=== PATIENT | female | born 1985 | race American Indian/Alaskan Native ===

== ENCOUNTER 2018-10-22 09:55 | Outpatient (CLI) | payer OTHER ==
[2018-10-22 10:20] VITALS: BP 113/63
--- NOTE | 2018-10-22 13:25 | Ultrasound Report ---
ULTRASOUND BIOPHYSICAL PROFILE: History: BPP Technique: Transabdominal ultrasound with Doppler interrogation. 2 - breathing movements 2 - movements 2 - posture and tone 2 - Qualitative amniotic fluid volume 8 - TOTAL SCORE OF POSSIBLE 8 Heart Rate (bpm) 135
--- NOTE | 2018-10-22 13:25 | Ultrasound Report ---
ULTRASOUND OB LIMITED History: JOHANA Technique: Transabdominal ultrasound with Doppler interrogation. Gestation: Single Position: Cephalic Amniotic Fluid: Normal JOHANA = 10.4 cm Heart Rate: 134 BPM
== END 2018-10-22 12:04 | disposition home or self-care (01) ==
LOC: EDBD 09:55 → TRG 09:55
PROVIDERS: ATTEND Obstetrics & Gynecology
DX: O47.1 False labor at or after 37 completed weeks of gestation (principal); Z3A.40 40 weeks gestation of pregnancy
CPT/HCPCS: 59025; 76815; 76819

== ENCOUNTER 2018-10-24 17:36 | Inpatient (IN) | payer OTHER ==
[2018-10-24 19:37] LABS: Basophils % (Auto) 0.4 % (0.0-1.8); Eosinophils # (Auto) 0.2 K/mm3 (0.0-0.4); Eosinophils % (Auto) 1.9 % (0.0-4.3); Hematocrit 36.7 % (30.3-42.9); Hemoglobin 12.7 gm/dl (10.1-14.3); Lymphocytes # (Auto) 1.4 K/mm3 (1.2-5.4); Lymphocytes % (Auto) 15.3 % (13.4-35.0); Mean Corpuscular HGB Conc 35 % (30-34); Mean Corpuscular Volume 93 fl (79-97); Monocytes # (Auto) 0.7 K/mm3 (0.0-0.8); Monocytes % (Auto) 6.9 % (0.0-7.3); Platelet Count 281 K/mm3 (140-440); Red Blood Count 3.95 M/mm3 (3.65-5.03); Red Cell Distribution Width 15.3 % (13.2-15.2)
[2018-10-24 19:48] LABS: INR 0.94 (0.87-1.13); Partial Thromboplastin Time 30.3 Sec. (24.2-36.6)
[2018-10-24] MEDS ORDERED: LACTATED RINGERS 1,000 ML ONE (20:38)
--- NOTE | 2018-10-24 20:41 | Ultrasound Report ---
PROCEDURE: US OB BPP WO NON-STRESS HISTORY: pt fell, assess for abruption, bpp FINDINGS: Biophysical profile was performed. Biophysical profile was 8 of 8. cardiac activity is present at 1 52 bpm Amniotic fluid index was 9.9 cm which is within normal limits. IMPRESSION: Biophysical profile 8 of 8 This document is electronically signed by Juan Tejada MD., October 24 2018 08:39:00 PM ET
--- NOTE | 2018-10-24 20:45 | Ultrasound Report ---
PROCEDURE: US OB LIMITED TECHNIQUE: Transabdominal scanning was performed to evaluate amniotic fluid index HISTORY: pt fell, assess for abruption, bpp, christina COMPARISONS: None FINDINGS: There is a single living intrauterine gestation currently in vertex presentation with a heart rate of 152 bpm. Subjectively the amount of amniotic fluid low normal, amniotic fluid index is low normal, 9 .9 cm. Placenta is located anterior and is grade 2. No evidence of placenta abruption. Detailed exam of the anatomy was not performed as this was not requested. Visualized structures show no gross abnormality. No definite evidence of placenta previa. IMPRESSION: No evidence of placenta abruption. Subjectively and by amniotic fluid index amniotic fluid volume low normal. There is a single living intrauterine gestation currently in vertex presentation. Further evaluation was neither requested nor performed.. This document is electronically signed by Abner Haynes MD., October 24 2018 08:43:32 PM ET
[2018-10-24] MEDS ORDERED: BRETHINE SUB-Q PRN (21:12)
[2018-10-24] MEDS ORDERED: SUBLIMAZE IV PRN (21:12)
[2018-10-24] MEDS ORDERED: AMPICILLIN/NS 2 GM/100 ML 2 GM/100 ML BAG IV ONE (21:12)
[2018-10-24] MEDS ORDERED: BRETHINE IVP PRN (21:12)
[2018-10-24] MEDS ORDERED: XYLOCAINE 2% INFILTRATI ONE (21:12)
[2018-10-24] MEDS ORDERED: STADOL IV PRN (21:12)
[2018-10-24] MEDS ORDERED: MINERAL OIL PO PRN (21:12)
[2018-10-24] MEDS ORDERED: TYLENOL PO ONE (21:20)
[2018-10-24] MEDS ORDERED: PITOCin/NS 20 UNIT/1000ML DRIP 20 UNITS/1,000 ML BAG IV SCH (22:00)
[2018-10-24] MEDS: LACTATED RINGERS 1,000 ML IV SCH (23:09)
--- NOTE | 2018-10-24 23:31 | History and Physical Report ---
History of Present Illness Date of examination: 10/24/18 Date of admission: 10/24/18 21:58 Chief complaint: fall, nrfht with one decel, BPP 8/8 History of present illness: This is a 32 yo EDC 10/18/18 at 40+6 weeks here after a fall on abdomen when she was protecting kids from a dog. She came into triage and had US normal with BPP 8/8 on evaluation noted to have a variable decel. Previously scheduled for IOL for tomorrow. Patient is apatient of Premier and noted to have GBS neg. Unremarkable course. Past History Past Medical History: no pertinent history Past Surgical History: no surgical history Family/Genetic History: none Social history: no significant social history. denies: smoking, alcohol abuse, prescription drug abuse - Obstetrical History Expected Date of Delivery: 10/18/18 Actual Gestation: 40 Week(s) 6 Day(s) : 3 Para: 2 Hx # Term Pregnancies: 2 Number of Pregnancies: 0 Spontaneous Abortions: 0 Induced : 0 Number of Living Children: 2 Medications and Allergies Allergies Allergy/AdvReac Type Severity Reaction Status Date / Time No Known Allergies Allergy Verified 10/22/18 10:19 Home Medications Medication Instructions Recorded Confirmed Last Taken Type Vitamin 1 tab PO QDAY 10/24/18 10/24/18 10/24/18 History Active Meds: Active Medications Butorphanol Tartrate (Stadol) 2 mg IV Q2H PRN PRN Reason: Pain , Severe (7-10) Ephedrine Sulfate (Ephedrine Sulfate) 10 mg IV Q2M PRN PRN Reason: Hypotension Fentanyl (Sublimaze) 100 mcg IV Q2H PRN PRN Reason: Labor Pain Oxytocin/Sodium Chloride (Pitocin/Ns 20 Unit/1000ml Drip) 20 units in 1,000 mls @ 125 mls/hr IV DIRECT HOLLEY Oxytocin/Sodium Chloride (Pitocin/Ns 30 Unit/500ml) 30 units in 500 mls @ 2 mls/hr IV TITR HOLLEY; Protocol Lactated Ringer's (Lactated Ringers) 1,000 mls @ 125 mls/hr IV DIRECT HOLLEY Last Admin: 10/24/18 23:09 Dose: 125 mls/hr Documented by: Mineral Oil (Mineral Oil) 30 ml PO QHS PRN PRN Reason: Constipation Terbutaline Sulfate (Brethine) 0.25 mg SUB-Q ONCE PRN PRN Reason: Hyperstimulation/Hypertonicity Terbutaline Sulfate (Brethine) 0.25 mg IVP ONCE PRN PRN Reason: Hyperstimulation/Hypertonicity Review of Systems All systems: negative - Vital Signs Vital signs: Vital Signs Pulse BP 105 H 115/67 10/24/18 18:08 10/24/18 18:08 Temp Pulse Resp BP Pulse Ox 98.2 F 101 H 18 118/59 96 10/24/18 23:09 10/24/18 22:08 10/24/18 23:07 10/24/18 22:08 10/24/18 21:50 - Physical Exam Breasts: Positive: normal Cardiovascular: Regular rate, Normal S1 Lungs: Positive: Clear to auscultation, Normal air movement Abdomen: Positive: normal appearance, soft, normal bowel sounds. Negative: distention, tenderness, guarding Genitourinary (Female): Positive: normal external genitalia, normal perenium Vagina: Positive: normal moisture Cervix: Negative: lesion Uterus: Positive: normal size Anus/Rectum: Positive: normal perianal skin Extremities: Positive: normal Deep Tendon Reflex Grade: Normal +2 - Obstetrical FHR: category 1 Cervical Dilatation: 1 Cervical Effacement Percentage: 50 station: -3 Uterine Contraction Pattern: Irregular Uterine Tone Measurement Phase: Resting Uterine Contraction Intensity: Mild Results Result Diagrams: 10/24/18 19:18 Abnormal lab results 10/24/18 Range/Units 19:18 MCHC 35 H (30-34) % RDW 15.3 H (13.2-15.2) % Seg Neutrophils % 75.5 H (40.0-70.0) % All other labs normal. Assessment and Plan A/P IUP 40+6 weeks s/p fall NRFHT Admit to labor and delivery GBS neg US normal with BPP 8/8 Close monitor of and maternal status Initiate IOL with low dose pitocin Expect vaginal delviery
[2018-10-24] MEDS ORDERED: AMBIEN PO PRN (23:43)
[2018-10-25] MEDS ORDERED: AMPICILLIN/NS 1 GM/50 ML 1 GM/50 ML BAG IV SCH (01:12)
[2018-10-25] MEDS ORDERED: PITOCin/NS 30 UNIT/500ML 30 UNITS/500 ML BAG IV SCH (05:00)
[2018-10-25] MEDS ORDERED: NACL 0.9% 500 ML 500 ML IV ONE (06:40)
[2018-10-25] MEDS ORDERED: PEPCID IV ONE ×2 (07:00→07:19)
[2018-10-25] MEDS ORDERED: ANCEF/STERILE WATER 2 GM/20 ML IV NR (07:00)
[2018-10-25] MEDS ORDERED: REGLAN IV ONE (07:00)
[2018-10-25] MEDS ORDERED: BICITRA PO SCH (07:00)
[2018-10-25] MEDS ORDERED: REGLAN ONE (07:18)
[2018-10-25] MEDS ORDERED: BICITRA ONE (07:18)
[2018-10-25] MEDS ORDERED: ANCEF/STERILE WATER 2 GM/20 ML 2 GM/20 ML SYRINGE IV ONE ×2 (07:19→10:25)
[2018-10-25] MEDS: LACTATED RINGERS 1,000 ML IV SCH ×2 (07:47→17:48)
[2018-10-25] MEDS ORDERED: SUBLIMAZE ONE (07:50)
[2018-10-25] MEDS ORDERED: ZOFRAN ONE ×2 (07:50→08:26)
[2018-10-25] MEDS ORDERED: ANCEF IV ONE (07:55)
[2018-10-25] MEDS ORDERED: BENADRYL ONE (08:26)
[2018-10-25] MEDS ORDERED: TORADOL ONE (08:26)
[2018-10-25] MEDS ORDERED: DILAUDID ONE (09:12)
--- NOTE | 2018-10-25 09:20 | Procedure Note ---
OB Delivery Note - Delivery Date of Delivery: 10/25/18 Surgeon: KEENAN GRIFFITH Estimated blood loss: 500cc - Section Preop diagnosis: nonreassuring FHR tracing Postop diagnosis: same section procedure: section Disposition: PACU Complications: none Narrative: see op note - Infant A at 1 minute: 8 at 5 minutes: 8 Gender: Male (weight 6 pounds 12 oz)
[2018-10-25] MEDS ORDERED: ZOFRAN IV PRN (09:26)
[2018-10-25] MEDS ORDERED: PHENERGAN PO PRN (09:26)
[2018-10-25] MEDS ORDERED: PHENERGAN PR PRN (09:26)
--- NOTE | 2018-10-25 09:26 | Anesthesia Day of Surgery ---
Anesthesia Day of Surgery - Day of Surgery Patient Examined: Yes Patient H&P Reviewed: Yes Patient is NPO: Yes Beta Blockers: No
--- NOTE | 2018-10-25 09:26 | Anesthesia Consultation ---
Anesthesia Consult and Med Hx Date of service: 10/25/18 - Airway Anesthetic Teeth Evaluation: Good ROM Head & Neck: Adequate Mental/Hyoid Distance: Adequate Mallampati Class: Class II - Pulmonary Exam CTA: Yes - Cardiac Exam Cardiac Exam: RRR - Pre-Operative Health Status ASA Pre-Surgery Classification: ASA2 Proposed Anesthetic Plan: Spinal - Pulmonary Hx Asthma: No COPD: No Hx Pneumonia: No - Cardiovascular System Hx Hypertension: No - Central Nervous System Hx Seizures: No Hx Psychiatric Problems: No - Endocrine Hx Renal Disease: No Hx End Stage Renal Disease: No Hx Hypothyroidism: No Hx Hyperthyroidism: No - Hematic Hx Anemia: No Hx Sickle Cell Disease: No - Other Systems Hx Alcohol Use: No
--- NOTE | 2018-10-25 09:29 | Operative Report ---
Operative Report Operative Report: PREOPERATIVE DIAGNOSES: 1. Intrauterine at term. 2. s/p fall -suspect abruption 3. NRFHT with repetitive late decels SURGEON: Dr. Mai Calixto MD POSTOPERATIVE DIAGNOSES: 1-2 TIFFANIE 3. Meconium thick PROCEDURE PERFORMED: Primary low-transverse section. ANESTHESIA: Spinal ESTIMATED BLOOD LOSS: 500 mL. COMPLICATIONS: None. FINDINGS: Male in cephalic presentation, OA position, weight 6 pounds 12 ounces. Apgars were 8 at 1 minute and 9 at 5 minutes. Normal uterus, tubes, and ovaries were noted. INDICATIONS: The patient is a 32-year-old 3, para 2 female, who presented to labor and delivery after a fall and overnight had NRFHT with repetitive lates. A decision was made to proceed with a primary low transverse section. The procedure was described to the patient in detail including possible risks of bleeding, infection, injury to surrounding organs, and possible need for further surgery. Informed consent was obtained prior to proceeding with the procedure. PROCEDURE NOTE: The patient was taken to the operating room where epidural anesthesia was found to be adequate. The patient was prepped and draped in the usual sterile fashion in the dorsal supine position with a left-masters tilt. A Pfannenstiel skin incision was made with the scalpel and carried through to the underlying layer of fascia using the Bovie. The fascia was incised in the midline and extended laterally using Mackenzie scissors. Dandre clamps were used to elevate the superior aspect of the fascial incision, which was elevated, and the underlying rectus muscles were dissected off bluntly and using Mackenzie scissors. Attention was then turned to the inferior aspect of the fascial incision, which in similar fashion was grasped with Dandre clamps, elevated, and the underlying rectus muscles were dissected off bluntly and using Mackenzie scissors. The rectus muscles were dissected in the midline. The peritoneum was bluntly dissected, entered, and extended superiorly and inferiorly with good visualization of the bladder. The bladder blade was inserted. The vesicouterine peritoneum was identified with pickups and entered sharply using Metzenbaum scissors. This incision was extended laterally and the bladder flap was created digitally. The bladder blade was reinserted. The lower uterine segment was incised in a transverse fashion using the scalpel and extended using manual traction. Thick meconium was noted. The was subsequently delivered atraumatically. The nose and mouth were bulb suctioned. The cord was clamped and cut. The infant was subsequently handed to the awaiting nursery nurse. Next, cord blood was obtained per the patients request for cord blood donation, which took several minutes to perform. Subsequent to the collection of this blood, the placenta was removed spontaneously intact with a 3-vessel cord noted. The uterus was exteriorized and cleared of all clots and debris. The uterine incision was repaired in 2 layers using 0 chromic suture. Hemostasis was visualized. The uterus was returned to the abdomen. The pelvis was copiously irrigated. The uterine incision was reexamined and was noted to be hemostatic. The rectus muscles were reapproximated in the midline using 3-0 Vicryl. The fascia was closed with 0 PDS, the subcutaneous layer was closed with 3-0 plain gut, and the skin was closed with Tejinder needle. Sponge, lap, and instrument counts were correct x2. The patient was stable at the completion of the procedure and was subsequently transferred to the recovery room in stable condition.
[2018-10-25] MEDS ORDERED: LANSINOH TP PRN (09:34)
[2018-10-25] MEDS ORDERED: NARCAN 0.4 MG/1 ML IV PRN ×2 (09:34→10:00)
[2018-10-25] MEDS ORDERED: TORADOL IV PRN ×2 (09:34)
[2018-10-25] MEDS ORDERED: MYLICON PO PRN (09:34)
[2018-10-25] MEDS ORDERED: TYLENOL PO PRN (09:34)
[2018-10-25] MEDS ORDERED: MORPHINE IV PRN ×2 (09:34→10:00)
[2018-10-25] MEDS ORDERED: TUCKS PAD TP PRN (09:34)
[2018-10-25] MEDS ORDERED: MILK OF MAGNESIA PO PRN (09:34)
[2018-10-25] MEDS ORDERED: PITOCin/NS 20 UNIT/1000ML DRIP 20 UNITS/1,000 ML BAG IV SCH (10:00)
[2018-10-25] MEDS ORDERED: SODIUM CHLORIDE FLUSH SYRINGE 10 ML IV NR ×2 (10:00)
[2018-10-25] MEDS ORDERED: DILAUDID IV PRN (10:00)
[2018-10-25] MEDS: FEOSOL PO SCH ×2 (12:53→13:01)
[2018-10-25] MEDS: IBUPROFEN PO PRN (12:53)
[2018-10-25] MEDS: NORCO 5/325 PO PRN ×2 (12:55→17:47)
[2018-10-25] MEDS: PRENATAL VITAMIN PO SCH (17:49)
[2018-10-25 21:32] LABS: Hematocrit 33.2 % (30.3-42.9); Hemoglobin 11.2 gm/dl (10.1-14.3)
[2018-10-26] MEDS: IBUPROFEN PO PRN ×2 (02:27→13:18)
[2018-10-26] MEDS: PERCOCET 5/325 PO PRN ×2 (02:27→20:49)
[2018-10-26] MEDS ORDERED: M-M-R II VACCINE SUB-Q ONE (06:00)
[2018-10-26] MEDS ORDERED: BOOSTRIX IM ONE (06:00)
[2018-10-26] MEDS: NORCO 5/325 PO PRN ×2 (08:15→15:51)
--- NOTE | 2018-10-26 08:46 | Progress Note ---
Assessment and Plan A/P POD#1 s/p csec vss routine postop care Subjective - Subjective Date of service: 10/26/18 Principal diagnosis: csec for NRFHT Interval history: This is a 32 yo EDC 10/18/18 at 40+6 weeks here after a fall on abdomen when she was protecting kids from a dog. She came into triage and had US normal with BPP 8/8 on evaluation noted to have a variable decel. Previously scheduled for IOL for tomorrow. Patient is apatient of Premier and noted to have GBS neg. Unremarkable course. Patient reports: appetite normal, voiding normally, pain well controlled, flatus, ambulating normally [place]: doing well Objective - Vital Signs Latest vital signs: Vital Signs Temp Pulse Resp BP BP Pulse Ox 10/26/18 08:15 18 10/26/18 00:00 98.8 F 78 16 101/73 10/25/18 20:27 98.0 F 81 18 110/68 97 10/25/18 17:47 18 10/25/18 15:34 97.4 F L 77 18 109/61 10/25/18 13:53 16 10/25/18 12:55 18 10/25/18 12:53 18 10/25/18 10:49 97.8 F 64 18 109/66 97 10/25/18 10:30 97.9 F 65 18 111/59 100 10/25/18 10:15 68 15 121/54 100 10/25/18 10:00 69 15 111/59 100 10/25/18 09:50 70 17 121/60 100 10/25/18 09:45 78 14 121/58 100 10/25/18 09:40 97.1 F L 74 15 119/62 93 10/25/18 09:25 97.7 F 97 H 18 120/65 97 Intake and Output 10/25/18 10/26/18 10/26/18 23:59 07:59 15:59 Intake Total 680 300 Output Total 1800 1600 Balance -1120 -1300 Intake: Oral 480 Intake, Free Water 200 300 Output: Urine 1800 1600 Indwelling Catheter 1200 Void 600 1600 Other: Total, Intake Amount 480 Total, Output Amount 600 800 # Voids Void 1 1 - Exam Breasts: Present: normal Cardiovascular: Present: Regular rate, Normal S1 Lungs: Present: Clear to auscultation, Normal air movement Abdomen: Present: normal appearance, soft, normal bowel sounds. Absent: disten tion, tenderness, guarding Vulva: both: normal Uterus: Present: normal, firm, fundal height below umbilicus. Absent: bogginess, tenderness Extremities: Present: normal Deep Tendon Reflex Grade: Normal +2 Incision: Present: normal, dry, intact - Labs Labs: Abnormal lab results 10/24/18 Range/Units 20:50 Crossmatch See Detail
[2018-10-26] MEDS: PRENATAL VITAMIN PO SCH (10:08)
[2018-10-26] MEDS: FEOSOL PO SCH (10:08)
[2018-10-27] MEDS: PERCOCET 5/325 PO PRN (06:10)
--- NOTE | 2018-10-27 08:50 | Progress Note ---
Assessment and Plan POD 2 s/p ltcs. Doing well. Pain well controlled. Pt ok with discharge on today Subjective - Subjective Date of service: 10/27/18 Principal diagnosis: csec for NRFHT Patient reports: appetite normal, voiding normally, pain well controlled, ambulating normally [place]: doing well Objective - Vital Signs Latest vital signs: Vital Signs Temp Pulse Resp BP BP Pulse Ox 10/27/18 00:00 98.6 F 66 18 119/64 10/26/18 16:50 98.2 F 82 18 127/67 100 10/26/18 15:51 18 10/26/18 13:18 18 Intake and Output 10/26/18 10/27/18 10/27/18 22:59 06:59 14:59 Intake Total 240 200 Balance 240 200 Intake: Oral 240 200 Other: Total, Intake Amount 240 200 Voiding Method Toilet - Exam Breasts: Present: deferred Cardiovascular: Present: Regular rate, Normal S1, Normal S2 Lungs: Present: Clear to auscultation, Normal air movement Abdomen: Present: normal appearance, soft, normal bowel sounds Uterus: Present: normal Extremities: Present: normal Deep Tendon Reflex Grade: Normal +2 Incision: Present: normal, dry, intact
--- NOTE | 2018-10-27 08:53 | Discharge Summary ---
Providers - Providers Date of Admission: 10/24/18 21:58 Date of discharge: 10/27/18 Attending physician: KEENAN GRIFFITH MD Primary care physician: KEENAN GRIFFITH MD Hospitalization Reason for admission: active labor Delivery: Procedure: primary low transverse Laceration: none Incision: normal, dry, intact complications: none Discharge diagnosis: IUP at term delivered baby: female Hospital course: unremarkable Condition at discharge: Good Disposition: DC-01 TO HOME OR SELFCARE Plan - Discharge Medications Prescriptions: Ferrous Sulfate [Feosol 325 MG tab] 325 mg PO BID #30 tablet Ibuprofen [Motrin] 600 mg PO Q8H PRN #30 tablet PRN Reason: Pain oxyCODONE /ACETAMINOPHEN [Percocet 5/325] 1 tab PO Q6HR PRN #30 tablet PRN Reason: Pain - Provider Discharge Summary Activity: routine, no sex for 6 weeks, no heavy lifting 4 weeks, no strenuous exercise Diet: routine Instructions: routine Additional instructions: [] Smoking cessation referral if applicable(refer to patient education folder for contact #) [] Refer to [facility]'s [facility] Booklet Call your doctor immediately for: * Fever > 100.5 * Heavy vaginal bleeding ( >1 pad per hour) * Severe persistent headache * Shortness of breath * Reddened, hot, painful area to leg or breast * Drainage or odor from incision. * Keep incision clean and dry at all times and follow doctor's instructions regarding bathing/showering - Follow up plan Follow up: KEENAN GRIFFITH MD [Primary Care Provider] - 14 Days
[2018-10-27] MEDS: FEOSOL PO SCH (10:20)
[2018-10-27] MEDS: PRENATAL VITAMIN PO SCH (10:20)
[2018-10-27] MEDS: IBUPROFEN PO PRN (11:10)
[2018-10-27 14:20] VITALS: BP 120/63
== END 2018-10-27 14:55 | disposition home or self-care (01) | DRG 766 ==
LOC: TRG 17:36 → LD 21:58 → OB 10-25 10:59
PROVIDERS: ADMIT Obstetrics & Gynecology; ATTEND Obstetrics & Gynecology
PROC: 10D00Z1 Extraction of Products of Conception, Low, Open Approach (ICD-10-PCS; principal; 2018-10-25)
PROC: 3E0234Z Introduction of Serum, Toxoid and Vaccine into Muscle, Percutaneous Approach (ICD-10-PCS; 2018-10-26)
DX: O76 Abnormality in fetal heart rate and rhythm complicating labor and delivery (principal); O71.89 Other specified obstetric trauma; W18.39XA Other fall on same level, initial encounter; Z3A.40 40 weeks gestation of pregnancy; Z37.0 Single live birth; Y93.89 Activity, other specified; Y92.098 Other place in other non-institutional residence as the place of occurrence of the external cause; Y99.8 Other external cause status; Z23 Encounter for immunization
CPT/HCPCS: 36415; 59025; 76815; 76819; 85014; 85018; 85025; 85610; 85730; 86592; 86850; 86900; 86901; 86920; 88302; 88307; G0378; C9250; J0690; J1170; J1200; J1885; J2405; J2590; J2765; J3010; J7120